=== PATIENT | female | born 1985 | race Caucasian/White ===

== ENCOUNTER → 2018-06-18 | Outpatient (CLI) | payer OTHER ==
--- NOTE | 2018-06-19 13:40 | ECHOF ---
Referral Reason:R94.31 Abnormal EKG MEASUREMENTS -------- HEIGHT: 165.1 cm WEIGHT: 61.2 kg BP: IVSd: 0.9 cm (0.6 - 1.1) LVIDd: 4.2 cm (3.9 - 5.3) LVPWd: 0.7 cm (0.6 - 1.1) IVSs: 1.2 cm LVIDs: 2.7 cm LVPWs: 1.0 cm LA Diam: 3.4 cm (2.7 - 3.8) RVIDd: 2.1 cm (< 3.3) LAESV Index (A-L): 17.08 ml/m Ao Diam: 2.8 cm (2.0 - 3.7) LA Diam: 3.0 cm (2.7 - 3.8) AV Cusp: 1.9 cm (1.5 - 2.6) EPSS: 0.3 cm MV E Yovany: 0.79 m/s MV DecT: 167 ms MV A Yovany: 0.44 m/s MV E/A Ratio: 1.80 RAP: 5.00 mmHg RVSP: 16.30 mmHg MV EF SLOPE: 140.38 mm/s (70 - 150) MV EXCURSION: 21.00 mm (> 18.000) FINDINGS -------- Sinus rhythm. This was a technically good study. LV size, wall thickness and systolic function are normal, with an EF greater than 55%. The left shoaib tricular size is normal. The right ventricle is normal in size. The left atrial size is normal. The right atrial size is normal. The aortic valve is trileaflet, and appears structurally normal. No aortic stenosis or regurgitation. Mild mitral regurgitation is present. Mild tricuspid regurgitation present. There is no evidence of pulmonary hypertension. The right v entricular systolic pressure, as measured by Doppler, is 16.30mmHg. There is no pulmonic regurgitation present. The aortic root size is normal. There is no pericardial effusion. CONCLUSIONS -------- 1. LV size, wall thickness and systolic function are normal, with an EF greater than 55%. 2. The left ventricular size is normal. 3. The right ventricle is normal in size. 4. The left atrial size is normal. 5. The right atrial size is normal. 6. The aortic valve is trileaflet, and appears structurally normal. No aortic stenosis or regurgitati on. 7. Mild mitral regurgitation is present. 8. Mild tricuspid regurgitation present. 9. There is no evidence of pulmonary hypertension. 10. The right ventricular systolic pressure, as measured by Doppler, is 16.30mmHg. 11. There is no pulmonic regurgitation present. 12. The aortic root size is normal. 13. There is no pericardial effusion. PAINTER HELPER: Ninoska Shepard RDCS
== END | disposition home or self-care (01) ==
LOC: RADECHMAIN 13:02
PROVIDERS: ATTEND Family Medicine
DX: I08.1 Rheumatic disorders of both mitral and tricuspid valves (principal)
CPT/HCPCS: 93306

== ENCOUNTER → 2018-06-20 | Outpatient (CLI) | payer OTHER ==
--- NOTE | 2018-06-21 09:46 | EST ---
- Stress Test Note Stress Test Results/Findings: Exam Performed: stress test Exam Date: 06/20/18 Reason for Exam: Palpitations Height: 5 ft 7 in Weight: 61.235 kg Protocol: Aime Stage: 3 Duration of Exercise: 9:30 Resting Heart Rate: 79 Resting Blood Pressure: 123/77 Maximum Achieved Heart Rate: 170 Maximum Achieved Blood Pressure: 171/72 85% PMHR: 162 100% PMHR: 190 METS: 11.1 Technologist Comment: Stress Test Results/Findings: Baseline heart rate 79 beats a minute, Baseline blood pressure 123/77 mmHg Baseline 12-lead ECG shows normal sinus rhythm with [address] elevation inferolaterally, incomplete right bundle branch block pattern. Patient exercised on a Aime protocol for 9 minutes 30 seconds achieving a peak heart rate 170 beats a minute normal blood pressure response to exercise There was no ECG evidence for ischemia no arrhythmias noted Impression no ECG evidence for ischemia good exercise capacity MTDD
== END | disposition home or self-care (01) ==
LOC: RADNMMAIN 09:01
PROVIDERS: ATTEND Family Medicine
DX: R94.31 Abnormal electrocardiogram [ECG] [EKG] (principal)
CPT/HCPCS: 93017

== ENCOUNTER 2019-07-20 15:55 | Emergency (ER) | payer OTHER ==
[2019-07-20 16:07] VITALS: TEMP 98.5
[2019-07-20] MEDS ORDERED: SODIUM CHLORIDE 0.9% 1,000 ML IV STA (16:30)
--- NOTE | 2019-07-20 16:30 | ED ---
Dizziness HPI - General Chief Complaint: Dizziness Stated Complaint: dizziness Time Seen by Provider: 07/20/19 16:10 Source: patient, RN notes reviewed, old records reviewed Mode of arrival: ambulatory Limitations: no limitations - History of Present Illness Initial Comments: This is a 33-year-old female presents today for evaluation of episodes of dizz iness. A few days of dizziness lightheadedness and feeling like she may pass out. Symptoms seem to be sporadic and spontaneous with no provoking factors. Nothing seems to help except for resting may be drinking some water. Patient does get sweaty during this event status feel weak and lightheaded or dizzy or pass out no headaches no chest pain or shortness of breath associated. Patient denies possibility of as she does have a IUD she was at [facility] expressed prior to arrival and medics were she was given glucose testing or urinalysis both which were normal. Currently patient is asymptomatic. She does feel little anxious and shaking of the hands and states that she does get shaky during these events which feels like she'll pass out mostly in her hands MD Complaint: dizziness, lightheadedness, near syncope -: days(s) Timing: sudden onset Description: near-syncope History of Same: Yes History of Trauma: No Severity: mild Improves With: nothing Worsens With: nothing Associated Symptoms: syncope (near), weakness - Related Data Allergies Allergy/AdvReac Type Severity Reaction Status Date / Time No Known Allergies Allergy Verified 07/20/19 16:07 Review of Systems ROS Statement: Those systems with pertinent positive or pertinent negative responses have been documented in the HPI. ROS Other: All systems not noted in ROS Statement are negative. Past Medical History Past Medical History: No Reported History Additional Past Medical History / Comment(s): palpitations - no dx from testing. History of Any Multi-Drug Resistant Organisms: None Reported Additional Past Surgical History / Comment(s): foot surgery Past Psychological History: No Psychological Hx Reported Smoking Status: Never smoker Past Alcohol Use History: Daily Past Drug Use History: None Reported General Exam Limitations: no limitations General appearance: alert, in no apparent distress Head exam: Present: atraumatic, normocephalic, normal inspection Eye exam: Present: normal appearance, PERRL, EOMI. Absent: scleral icterus, conjunctival injection, periorbital swelling ENT exam: Present: normal exam, mucous membranes moist Neck exam: Present: normal inspection. Absent: tenderness, meningismus, lymphadenopathy Respiratory exam: Present: normal lung sounds bilaterally. Absent: respiratory distress, wheezes, rales, rhonchi, stridor Cardiovascular Exam: Present: regular rate, normal rhythm, normal heart sounds. Absent: systolic murmur, diastolic murmur, rubs, gallop, clicks GI/Abdominal exam: Present: soft, normal bowel sounds. Absent: distended, tenderness, guarding, rebound, rigid Extremities exam: Present: normal inspection, full ROM, normal capillary refill. Absent: tenderness, pedal edema, joint swelling, calf tenderness Back exam: Present: normal inspection Neurological exam: Present: alert, oriented X3, CN II-XII intact Psychiatric exam: Present: normal affect, normal mood Skin exam: Present: warm, dry, intact, normal color. Absent: rash Course Vital Signs 07/20/19 07/20/19 07/20/19 16:03 17:00 17:30 Temperature 98.5 F Pulse Rate 81 80 81 Respiratory 16 18 16 Rate Blood Pressure 129/87 133/83 123/77 O2 Sat by Pulse 100 99 99 Oximetry 07/20/19 18:00 Temperature Pulse Rate 80 Respiratory 17 Rate Blood Pressure 120/82 O2 Sat by Pulse 97 Oximetry - Reevaluation(s) Reevaluation #1: 07/20/19 16:30 medical record and transfer paperwork from [facility] is reviewed Reevaluation #2: 07/20/19 18:13 Patient states she's feeling well with no recurrent events Reevaluation #3: 07/20/19 18:13 Spoke with patient regarding need for further evaluation by cardiology possible Holter monitor, patient concurs EKG Findings - EKG Comments: EKG Findings:: EKG shows sinus rhythm rate of 81, LA 166, QRS 82, QTc 446 Medical Decision Making - Medical Decision Making 33 female the ER for evaluation of dizziness episodes of near syncope possible arrhythmia. Patient this time will be discharged home no significant events found here in the ER - Lab Data Result diagrams: 07/20/19 16:35 07/20/19 16:35 Lab Results 07/20/19 07/20/19 07/20/19 Range/Units 16:35 16:35 16:35 WBC 8.4 (3.8-10.6) k/uL RBC 5.10 (3.80-5.40) m/uL Hgb 14.9 (11.4-16.0) gm/dL Hct 45.3 (34.0-46.0) % MCV 88.9 (80.0-100.0) fL MCH 29.3 (25.0-35.0) pg MCHC 33.0 (31.0-37.0) g/dL RDW 11.9 (11.5-15.5) % Plt Count 242 (150-450) k/uL Neutrophils % 83 % Lymphocytes % 10 % Monocytes % 4 % Eosinophils % 0 % Basophils % 0 % Neutrophils # 6.9 (1.3-7.7) k/uL Lymphocytes # 0.9 L (1.0-4.8) k/uL Monocytes # 0.3 (0-1.0) k/uL Eosinophils # 0.0 (0-0.7) k/uL Basophils # 0.0 (0-0.2) k/uL D-Dimer 0.26 (<0.60) mg/L FEU Sodium 141 (137-145) mmol/L Potassium 4.4 (3.5-5.1) mmol/L Chloride 106 (98-107) mmol/L Carbon Dioxide 24 (22-30) mmol/L Anion Gap 11 mmol/L BUN 13 (7-17) mg/dL Creatinine 0.88 (0.52-1.04) mg/dL Est GFR (CKD-EPI)AfAm >90 (>60 ml/min/1.73 sqM) Est GFR (CKD-EPI)NonAf 88 (>60 ml/min/1.73 sqM) Glucose 103 H (74-99) mg/dL Calcium 9.5 (8.4-10.2) mg/dL Phosphorus 4.1 (2.5-4.5) mg/dL Magnesium 2.2 (1.6-2.3) mg/dL Total Bilirubin 0.5 (0.2-1.3) mg/dL AST 24 (14-36) U/L ALT 20 (9-52) U/L Alkaline Phosphatase 55 (38-126) U/L Creatine Kinase 75 (30-135) U/L Troponin I (0.000-0.034) ng/mL NT-Pro-B Natriuret Pep pg/mL Total Protein 8.1 (6.3-8.2) g/dL Albumin 5.0 (3.5-5.0) g/dL TSH 5.360 H (0.465-4.680) mIU/L 07/20/19 07/20/19 Range/Units 16:35 16:35 WBC (3.8-10.6) k/uL RBC (3.80-5.40) m/uL Hgb (11.4-16.0) gm/dL Hct (34.0-46.0) % MCV (80.0-100.0) fL MCH (25.0-35.0) pg MCHC (31.0-37.0) g/dL RDW (11.5-15.5) % Plt Count (150-450) k/uL Neutrophils % % Lymphocytes % % Monocytes % % Eosinophils % % Basophils % % Neutrophils # (1.3-7.7) k/uL Lymphocytes # (1.0-4.8) k/uL Monocytes # (0-1.0) k/uL Eosinophils # (0-0.7) k/uL Basophils # (0-0.2) k/uL D-Dimer (<0.60) mg/L FEU Sodium (137-145) mmol/L Potassium (3.5-5.1) mmol/L Chloride (98-107) mmol/L Carbon Dioxide (22-30) mmol/L Anion Gap mmol/L BUN (7-17) mg/dL Creatinine (0.52-1.04) mg/dL Est GFR (CKD-EPI)AfAm (>60 ml/min/1.73 sqM) Est GFR (CKD-EPI)NonAf (>60 ml/min/1.73 sqM) Glucose (74-99) mg/dL Calcium (8.4-10.2) mg/dL Phosphorus (2.5-4.5) mg/dL Magnesium (1.6-2.3) mg/dL Total Bilirubin (0.2-1.3) mg/dL AST (14-36) U/L ALT (9-52) U/L Alkaline Phosphatase (38-126) U/L Creatine Kinase (30-135) U/L Troponin I <0.012 (0.000-0.034) ng/mL NT-Pro-B Natriuret Pep 232 pg/mL Total Protein (6.3-8.2) g/dL Albumin (3.5-5.0) g/dL TSH (0.465-4.680) mIU/L Disposition Clinical Impression: Dizziness Disposition: HOME SELF-CARE Condition: Good Instructions (If sedation given, give patient instructions): Dizziness (ED) Is patient prescribed a controlled substance at d/c from ED?: No Referrals: Dmitriy Goel MD [Primary Care Provider] - 1-2 days
[2019-07-20 16:49] LABS: Basophils % (A) 0 %; Eosinophils % (A) 0 %; HCT 45.3 % (34.0-46.0); HGB 14.9 gm/dL (11.4-16.0); Lymphocytes # (A) 0.9 k/uL (1.0-4.8); Lymphocytes % (A) 10 %; MCH 29.3 pg (25.0-35.0); MCV 88.9 fL (80.0-100.0); Mean Platelet Volume 6.4; Monocytes # (A) 0.3 k/uL (0-1.0); Monocytes % (A) 4 %; Neutrophils # (A) 6.9 k/uL (1.3-7.7); Neutrophils % (A) 83 %; Platelet Count 242 k/uL (150-450); RDW 11.9 % (11.5-15.5); WBC 8.4 k/uL (3.8-10.6)
[2019-07-20 17:05] LABS: ALT 20 U/L (9-52); AST 24 U/L (14-36); African American GFR (CKD) >90 (>60 ml/min/1.73 sqM); Alkaline Phosphatase 55 U/L (38-126); Anion Gap 11 mmol/L; Blood Urea Nitrogen 13 mg/dL (7-17); Calcium 9.5 mg/dL (8.4-10.2); Carbon Dioxide 24 mmol/L (22-30); Chloride 106 mmol/L (98-107); Creatine Kinase 75 U/L (30-135); Glucose 103 mg/dL (74-99); Magnesium 2.2 mg/dL (1.6-2.3); Phosphorus 4.1 mg/dL (2.5-4.5); Potassium 4.4 mmol/L (3.5-5.1); Sodium 141 mmol/L (137-145); Total Bilirubin 0.5 mg/dL (0.2-1.3); Total Protein 8.1 g/dL (6.3-8.2)
[2019-07-20 18:25] VITALS: BP 116/79; PULSE 87; RESP 16
[2019-07-20 18:46] LABS: T4, Free (Free Thyroxine) 1.07 ng/dL (0.78-2.19)
== END 2019-07-20 18:24 | disposition home or self-care (01) ==
LOC: EC 15:55
DX: R42 Dizziness and giddiness (principal); R61 Generalized hyperhidrosis; R53.1 Weakness; R25.9 Unspecified abnormal involuntary movements; Z97.5 Presence of (intrauterine) contraceptive device
CPT/HCPCS: 36415; 80053; 82550; 83735; 83880; 84100; 84439; 84443; 84481; 84484; 85025; 85379; 93005; 96360; 99284

== ENCOUNTER → 2019-09-19 | Outpatient (CLI) | payer OTHER ==
--- NOTE | 2019-09-19 10:37 | MR ---
EXAMINATION TYPE: MR brain wo con DATE OF EXAM: 09/19/2019 COMPARISON: NONE HISTORY: Dizziness, lightheaded, fainting, headaches, blurred vision TECHNIQUE: Multiplanar, multisequence images of the brain and brainstem is performed without intravenous contras t. FINDINGS: Diffusion weighted images demonstrate no evidence of a recent infarct or other diffusion ab normality. There is no extra-axial fluid collection. There is amorphous central periventricular FLAI R hyperintensity on FLAIR axial fat-sat image 20 and 19. This is less pronounced on T2 fat sat axial images. The ventricular system and cisternal spaces are normal in size and appearance. The brain vol ume is age appropriate. Midline structures demonstrate normal morphology. 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 The craniocervical junction appears within normal limits. The dural venous sinuses appear patent. Minimal ethmoid mucosal thickening. The remaining visualized sinuses are clear and the globes are int act. IMPRESSION: 1. No acute infarct, midline shift or mass effect. 2. Nonspecific periventricular confluent white matter changes. Multiple sclerosis should be considere d in the appropriate clinical setting although other etiologies such as vasculitis are possible. 3. Very mild ethmoid paranasal sinus disease.
== END | disposition home or self-care (01) ==
LOC: RADMRIMAIN 09:11
PROVIDERS: ATTEND Family Medicine
DX: G35 Multiple sclerosis (principal)
CPT/HCPCS: 70551

== ENCOUNTER → 2019-11-13 | Outpatient (CLI) | payer OTHER | END | disposition home or self-care (01) | LOC: LABWHC1 10:24 | PROVIDERS: ATTEND Psychiatry & Neurology Neurology | DX: G43.711 Chronic migraine without aura, intractable, with status migrainosus (principal) | CPT/HCPCS: 36415; 85652; 86038; 86618 ==

== ENCOUNTER → 2019-11-18 | Outpatient (CLI) | payer OTHER ==
--- NOTE | 2019-11-18 15:45 | MR ---
EXAMINATION TYPE: MR brain wo/w con DATE OF EXAM: 11/18/2019 COMPARISON: MR brain 09/19/2019 HISTORY: Prior on synapse, MAY, syncope, dizzness, blurred vision, MS protocol ran due to prior report TECHNIQUE: Multiplanar, multisequence images of the brain and brainstem is performed without and with IV contras t, utilizing 7.0 ML mL intravenous Gadavist . FINDINGS: Diffusion weighted images demonstrate no evidence of a recent infarct or other diffusion ab normality. There is no extra-axial fluid collection or significant interval change white matter sign al abnormality. The ventricular system and cisternal spaces are normal in size and appearance. The brain volume is age appropriate. Midline structures demonstrate normal morphology. The craniocervical junction appears within normal limits. Post contrast images demonstrate no abnormal enhancement. The dural venous sinuses appear pa tent. The visualized sinuses are clear and the globes are intact. IMPRESSION: Stable exam, no acute brain abnormality.
== END | disposition home or self-care (01) ==
LOC: RADMRIMAIN 14:27
PROVIDERS: ATTEND Psychiatry & Neurology Neurology
DX: I63.9 Cerebral infarction, unspecified (principal); R55 Syncope and collapse; R42 Dizziness and giddiness
CPT/HCPCS: 70553; A9585